=== PATIENT | female | born 1935 | race Caucasian/White ===

== ENCOUNTER 2017-08-02 13:12 | Inpatient (IN) | payer MEDICARE, OTHER ==
[~2017-08-02] VITALS: Ht 167.6 cm; Wt 64.4 kg
[~2017-08-02 13:12] MED LIST: ADVAIR HFA 230M1 AER IH; ADVAIRDISKUS; ALBUTEROL2.5 MG/31 INH; ALIGN4 MG PO; ALTACE5 M1; AVELOX 400 MG400 MG PO; CALCIUM PO; CARAFATE1 GM/10 ML PO; CENTRUM COMPLE1 EACH; CITRACAL + BON1 EACH PO; CYMBALTA30 MG PO; Centrum Silver Ultra PO; DEXILANT60 MG PO; DIAZEPAM 2MG TAB2 MG PO; DOXYCYCLINE 10100 M1 PO; DUONEB 2.5-0.5 M3 ML INH; DYMISTA NASAL S23 GM NS; FLEXERIL PO; FLOMAX PO; FLONASE 0.05%50 MCG NASAL; FLORASTOR250 MG PO; HYDROCHLOROTHIA25 M1 PO; HYDROCODONE-AP1 EAC6 PO; IBUPROFEN 800800 MG PO; KEFLEX500 MG PO; LANSOPRAZOLE30 MG PO; LEVAQUIN 500 M500 M2 PO; MULTIVITAMINS; NEXIUM40 MG; NEXIUM40 MG PO; OMEPRAZOLE; OMEPRAZOLE40 MG PO; PROTONIX40 M1 PO; PROTONIX40 M2 PO; PULMICORT0.25 MG/2 INH; PYRIDIUM100 M1 PO; RESTORIL; RESTORIL30 MG PO; Ramipril 5mg PO; SINGULAIR 10 MG10 M1 PO; SPIRIVA; SYNTHROID50 MCG PO; TRAMADOL 50 MG50 MG PO; TUSSINMAX15 MG/5 ML PO; TUSSIONEX PENN473 ML PO; ULTRAM 50MG TAB50 MG PO; VENTOLIN HFA 1818 GM INH; VITAMIN D31000 UNI2 PO; XIFAXAN550 M1 PO; ZANTAC 150MG T150 M1 PO; ZANTAC 150MG T150 MG PO; ZOFRAN ODT4 MG PO; ZOLOFT100 MG
[2017-08-02 14:21] LABS: ABSOLUTE LYMPHOCYTES 0.9 thou/uL (0.8-5.3); ABSOLUTE MONOCYTES 0.4 thou/uL (0.0-1.2); ABSOLUTE NEUTROPHILS 4.8 thou/uL (1.6-8.1); BASOPHILS 0.6 %; EOSINOPHILS 0.7 %; HEMATOCRIT 38.1 % (37.0-47.0); HEMOGLOBIN 12.5 gm/dL (12.0-15.0); LYMPHOCYTES 14.6 %; MCH 29.8 pg (26.0-34.0); MCHC 32.8 g/dL (28.0-37.0); MCV 90.9 fL (80.0-100.0); MONOCYTES 6.3 %; MPV 8.1 fl. (7.2-11.1); NUCLEATED RBCS 0 /100WBC; PLATELET COUNT* 215 thou/uL (150-400); POLYS 77.8 %; RBC 4.18 mil/uL (4.20-5.00); RDW-CV 14.7 % (10.5-14.5); WBC 6.2 thou/uL (4.0-11.0)
[2017-08-02 14:32] LABS: ALBUMIN 4.1 g/dL (3.4-5.0); CALCIUM 9.9 mg/dL (8.5-10.1); CREATININE 0.9 mg/dL (0.6-1.3); TOTAL BILIRUBIN 0.5 mg/dL (<0.1-1.0)
[2017-08-02 16:00] VITALS: BP 164/62
[2017-08-02 16:12] VITALS: BP 172/76
[2017-08-02 20:00] VITALS: BP 153/54
[2017-08-03 03:56] VITALS: BP 131/89
[2017-08-03 07:56] VITALS: BP 128/67
--- NOTE | 2017-08-03 11:20 | EKG ---
[place] [address] ELECTROCARDIOGRAM REPORT Name: GIGI BAKERLINE Room: [address] ADM IN M.R.#: [id number] Admission: 08/02/17 Attend Phys: Lynette Dunne MD Discharge: Date of : 31 Report #: [id number] THIS REPORT FOR: //name// [facility] Test Date: 2017-08-02 Test Time: 16:44:19 Pat Name: MIKA BAKER Department: Room: [address] Gender: F Manager Bakery: : 1935 Requested By: Lynette Dunne Order Number: [id number] Reading MD: Benito Chaudhary Measurements Intervals [place] Rate: 84 P: 83 NC: 177 QRS: 1 QRSD: 72 T: 63 QT: 347 QTc: 411 Interpretive Statements Sinus rhythm Abnormal R-wave progression, early transition Compared to ECG 09/21/2015 18:12:31 No significant changes Electronically Signed On 08-03-2017 11:20:13 MUSEUM INFORMATICS SPECIALIST by Benito Chaudhary [email or web address] <ELECTRONICALLY SIGNED> By: Benito Chaudhary MD, [facility] 08/03/17 1120 43 43 Benito Chaudhary MD, [facility] /EPI
[2017-08-03 14:11] LABS: URINE BILIRUBIN NEGATIVE (Negative); URINE BLOOD NEGATIVE (Negative); URINE CLARITY CLEAR; URINE COLOR YELLOW; URINE GLUCOSE-RANDOM NEGATIVE (Negative); URINE KETONES NEGATIVE (Negative); URINE LEUKOCYTES-REFLEX NEGATIVE (Negative); URINE PROTEIN NEGATIVE (Negative); URINE SPECIFIC GRAVITY <= 1.005 (1.005-1.030); URINE UROBILINOGEN 0.2 E.U./dl (0.2-1.0)
[2017-08-03 14:13] LABS: URINE NITRITE-REFLEX POSITIVE (Negative)
[2017-08-03 14:21] LABS: CASTS None Seen /LPF (None Seen); CRYSTALS None Seen /LPF (None Seen); MUCUS None Seen strn/LPF (None Seen); SQUAMOUS 0-3 Few /LPF (0-3); URINE RBC 3-10 Few /HPF (0-2); URINE WBC-REFLEX 6-15 Few /HPF (0-5)
[2017-08-03 21:00] VITALS: BP 134/56
[2017-08-04 00:17] VITALS: BP 147/70
[2017-08-04 08:24] VITALS: BP 157/67
[2017-08-04] MEDS ORDERED: AMITRIPTYLINE H50 M4 PO (09:40)
[2017-08-04] MEDS ORDERED: PHENAZOPYRIDIN100 M1 PO (09:40)
[2017-08-04] MEDS ORDERED: ROCEPHIN 11 GM/1001 IV (09:49)
[2017-08-04 10:04] VITALS: BP 157/67
== END 2017-08-04 11:30 | disposition home or self-care (01) | DRG 690 ==
LOC: M.PRE 13:12 → M.ORTHSURG 13:24
PROVIDERS: ADMIT Internal Medicine
PROC: B548ZZA Ultrasonography of Superior Vena Cava, Guidance (ICD-10-PCS; principal; 2017-08-03)
PROC: 02HV33Z Insertion of Infusion Device into Superior Vena Cava, Percutaneous Approach (ICD-10-PCS; principal; 2017-08-03)
DX: N39.0 Urinary tract infection, site not specified (principal); J45.909 Unspecified asthma, uncomplicated; E03.9 Hypothyroidism, unspecified; K21.9 Gastro-esophageal reflux disease without esophagitis; G47.00 Insomnia, unspecified; I10 Essential (primary) hypertension; Z79.82 Long term (current) use of aspirin; Z79.899 Other long term (current) drug therapy; Z90.49 Acquired absence of other specified parts of digestive tract; Z90.710 Acquired absence of both cervix and uterus

== ENCOUNTER → 2017-08-06 | Outpatient (CLI) | payer MEDICARE, OTHER ==
[~2017-08-06] MED LIST changes: +AMITRIPTYLINE H50 M4 PO; +BENTYL 20 MG TA20 M1 PO; +LEVSIN0.125 MG PO; +MAGOX 400400 MG PO; +ONDANSETRON HCL4 M2 PO; +ORPHENADRINE C100 M2 PO; +PHENAZOPYRIDIN100 M1 PO; +PROBIOTIC1 EAC1 PO; +REGLAN 5 MG TAB5 MG PO; +ROCEPHIN 11 GM/1001 IV; +SYMBICORT160 MCG/4. INH; +VITAMIN D1000 UNI1 PO; +ZOFRAN4 MG PO
[2017-08-06 12:30] VITALS: BP 159/52
--- NOTE | 2017-08-06 14:10 | NUR ---
ASSUMED CARE OF PATIENT FROM HOME. PT IS HERE ALONE AND IS DOING WELL. SHE HAS NO CO OF PAIN OR NAUSEA. SHE WAS EDUCATED ON PLAN OF CARE AND MEDICATIONS, WILL CONTINUE TO MONITOR.
== END ==
LOC: M.INFUS 04:58
DX: N39.0 Urinary tract infection, site not specified (principal); R10.9 Unspecified abdominal pain; J20.9 Acute bronchitis, unspecified; M54.30 Sciatica, unspecified side

== ENCOUNTER → 2017-08-07 | Outpatient (CLI) | payer MEDICARE, OTHER | LOC: M.INFUS 09:15 | DX: N39.0 Urinary tract infection, site not specified (principal) ==

== ENCOUNTER → 2017-08-09 | Outpatient (CLI) | payer MEDICARE, OTHER ==
--- NOTE | 2017-08-09 12:40 | NUR ---
PATIENT ARRIVAL AMBULATORY FROM HOME TO OP INFUSION LAB. MADE SELF COMFORTABLE IN RECLINER. CALL LIGHT AND REMOTE GIVEN TO PATIENT. HISTORY AND ORDERS REVIEWED. REASSESSMENT AND VS OBTAINED. RT UPPER ARM SINGLE LUMEN PICC LINE IN PLACE. PICC LINE DRESSING C/D/I WITHOUT EDEMA. PICC FLUSHES WELL AND BRISK BLOOD RETURN OBTAINED. ANTIBIOTIC THERAPY STARTED PER EMAR ONCE AVAILABLE FROM PHARMACY. PATIENT DENIES CONCERNS.
[2017-08-09 12:43] VITALS: BP 153/68
--- NOTE | 2017-08-09 13:25 | NUR ---
ANTIBIOTIC COMPLETED WITHOUT DIFFICULTY. PICC LINE FLUSHED WITH NS 20MLS. PATIENT DEPARTS FOR HOME AT 1330.
== END ==
LOC: M.INFUS 05:59
DX: N39.0 Urinary tract infection, site not specified (principal); R53.1 Weakness; J20.9 Acute bronchitis, unspecified; R10.9 Unspecified abdominal pain; M54.30 Sciatica, unspecified side

== ENCOUNTER → 2017-08-10 | Outpatient (CLI) | payer MEDICARE, OTHER ==
[2017-08-10 13:00] VITALS: BP 134/72
== END ==
LOC: M.INFUS 01:51
DX: N39.0 Urinary tract infection, site not specified (principal); R10.9 Unspecified abdominal pain; R53.1 Weakness; J20.9 Acute bronchitis, unspecified; M54.30 Sciatica, unspecified side

== ENCOUNTER → 2017-08-11 | Outpatient (CLI) | payer MEDICARE, OTHER ==
[2017-08-11 13:15] VITALS: BP 124/65
--- NOTE | 2017-08-11 14:05 | NUR ---
ARRIVED AMBULATORY. MADE SELF COMFORTABLE. PICC INTACT AND PATNET WITH GOOD BLOOD RETURN AND EASY FLUSH. INFUSION COMPLETED AND TOLREATED WELL. DENIES NEEDS AT DISCHARGE. CALL PLACED TO PRIMARY CARE DR. RICHTER. REQUESTIONG ORDER TO PULL PICC AFTER LAST SCHEDULED INFUSION TOMORROW. NO CALL BACK AT THIS TIME.
== END ==
LOC: M.INFUS 04:20
DX: N39.0 Urinary tract infection, site not specified (principal); R39.15 Urgency of urination; R53.1 Weakness; J20.9 Acute bronchitis, unspecified; R10.9 Unspecified abdominal pain; M54.30 Sciatica, unspecified side

== ENCOUNTER → 2017-08-12 | Outpatient (CLI) | payer MEDICARE, OTHER ==
[2017-08-12 13:02] VITALS: BP 152/89
--- NOTE | 2017-08-12 13:38 | NUR ---
ARRIVED AMBULATORY WITH FRIEND. DENIES ADVERSE REACTION TO MULTIPLE INFUSIONS OF SAME. WEEKLY PICC DRESSING CHANGE COMPLETED. INFUSION RUNNING WELL.
--- NOTE | 2017-08-12 13:55 | NUR ---
INFUSION COMPLETED AND TOLERATED WELL.
== END ==
LOC: M.INFUS 05:56
DX: N39.0 Urinary tract infection, site not specified (principal); J20.9 Acute bronchitis, unspecified; M54.30 Sciatica, unspecified side; R10.9 Unspecified abdominal pain

== ENCOUNTER 2018-01-07 21:04 | Emergency (ER) | payer MEDICARE, OTHER ==
[~2018-01-07] VITALS: Ht 167.6 cm; Wt 65.3 kg
[~2018-01-07 21:04] MED LIST changes: -BENTYL 20 MG TA20 M1 PO; -LEVSIN0.125 MG PO; -MAGOX 400400 MG PO; -ONDANSETRON HCL4 M2 PO; -ORPHENADRINE C100 M2 PO; -PROBIOTIC1 EAC1 PO; -REGLAN 5 MG TAB5 MG PO; -SYMBICORT160 MCG/4. INH; -VITAMIN D1000 UNI1 PO; -ZOFRAN4 MG PO
[2018-01-07] MEDS ORDERED: ORPHENADRINE C100 M2 PO (21:26)
[2018-01-07] MEDS ORDERED: LEVSIN0.125 MG PO (21:27)
[2018-01-07] MEDS ORDERED: SYMBICORT160 MCG/4. INH (21:27)
[2018-01-07] MEDS ORDERED: PROBIOTIC1 EAC1 PO (21:27)
[2018-01-07] MEDS ORDERED: MAGOX 400400 MG PO (21:27)
[2018-01-07] MEDS ORDERED: ONDANSETRON HCL4 M2 PO (21:28)
[2018-01-07 21:36] LABS: ABSOLUTE EOSINOPHILS 0.2 thou/uL (0.0-0.7); ABSOLUTE LYMPHOCYTES 1.2 thou/uL (0.8-5.3); ABSOLUTE MONOCYTES 0.4 thou/uL (0.0-1.2); ABSOLUTE NEUTROPHILS 3.3 thou/uL (1.6-8.1); BASOPHILS 0.7 %; EOSINOPHILS 3.7 %; HEMATOCRIT 36.9 % (37.0-47.0); HEMOGLOBIN 12.2 gm/dL (12.0-15.0); LYMPHOCYTES 22.8 %; MCH 29.8 pg (26.0-34.0); MCHC 32.9 g/dL (28.0-37.0); MCV 90.5 fL (80.0-100.0); MONOCYTES 8.2 %; MPV 7.5 fl. (7.2-11.1); NUCLEATED RBCS 0 /100WBC; PLATELET COUNT* 208 thou/uL (150-400); POLYS 64.6 %; RBC 4.08 mil/uL (4.20-5.00); RDW-CV 14.4 % (10.5-14.5); WBC 5.2 thou/uL (4.0-11.0)
[2018-01-07 21:41] LABS: ANION GAP 6 mmol/L (7-16); BUN 15 mg/dL (7-18); CALCIUM 8.8 mg/dL (8.5-10.1); CHLORIDE 95 mmol/L (98-107); CO2 33 mmol/L (21-32); GLUCOSE 112 mg/dL (70-99); SODIUM 134 mmol/L (136-145)
[2018-01-07 21:43] LABS: APTT 30.5 Seconds (25.0-31.3)
[2018-01-07 21:48] LABS: ALBUMIN 3.8 g/dL (3.4-5.0); ALKALINE PHOSPHATASE 68 U/L (46-116); LIPASE 68 U/L (73-393); SGOT 16 U/L (15-37); SGPT 19 U/L (30-65); TOTAL BILIRUBIN 0.3 mg/dL (<0.1-1.0); TOTAL PROTEIN 7.6 g/dL (6.4-8.2); TROPONIN-I LEVEL <0.06 ng/mL (<0.06)
[2018-01-07 22:10] LABS: URINE BILIRUBIN NEGATIVE (Negative); URINE BLOOD NEGATIVE (Negative); URINE CLARITY CLEAR; URINE COLOR YELLOW; URINE GLUCOSE-RANDOM NEGATIVE (Negative); URINE KETONES NEGATIVE (Negative); URINE LEUKOCYTES-REFLEX NEGATIVE (Negative); URINE NITRITE-REFLEX NEGATIVE (Negative); URINE PROTEIN NEGATIVE (Negative); URINE UROBILINOGEN 0.2 E.U./dl (0.2-1.0)
[2018-01-07] MEDS ORDERED: ZOFRAN4 MG PO (23:22)
[2018-01-07] MEDS ORDERED: BENTYL 20 MG TA20 M1 PO (23:22)
[2018-01-07 23:40] VITALS: BP 144/71
--- NOTE | 2018-01-10 11:34 | EKG ---
[place] [address] ELECTROCARDIOGRAM REPORT Name: GIGI BAKERISIAH BARRERA [id number] Admission: 01/07/18 Attend Phys: Discharge: 01/07/18 Date of : 31 Report #: [id number] THIS REPORT FOR: //name// [facility] ED Test Date: 2018-01-07 Test Time: 23:01:58 Pat Name: MIKA BAKER Department: Room: Gender: F Residential Program Coordinator: HUGO Leblanc : 1935 Requested By: Phill Bashir Order Number: [id number] MD: Kevin Pretty Measurements Intervals [place] Rate: 92 P: 83 DC: 188 QRS: -6 QRSD: 76 T: 63 QT: 357 QTc: 442 Interpretive Statements Sinus rhythm Ventricular premature complex Compared to ECG 08/02/2017 16:44:19 Ventricular premature complex(es) now present Electronically Signed On 01-10-2018 11:33:53 CDT by Kevin Pretty [email or web address] <ELECTRONICALLY SIGNED> By: Kevin Pretty MD, [facility] 01/10/18 113 00 00 Kevin Pretty MD, FAC /EPI
== END 2018-01-07 23:40 | disposition home or self-care (01) ==
LOC: M.ERS 21:04
PROVIDERS: Nurse Practitioner Family
DX: K52.9 Noninfective gastroenteritis and colitis, unspecified (principal); M19.90 Unspecified osteoarthritis, unspecified site; J45.909 Unspecified asthma, uncomplicated; E03.9 Hypothyroidism, unspecified; Z90.49 Acquired absence of other specified parts of digestive tract; Z90.710 Acquired absence of both cervix and uterus; Z90.89 Acquired absence of other organs; Z88.6 Allergy status to analgesic agent; Z88.1 Allergy status to other antibiotic agents; Z88.2 Allergy status to sulfonamides

== ENCOUNTER 2018-01-14 20:35 | Inpatient (IN) | payer MEDICARE, OTHER ==
[~2018-01-14] VITALS: Ht 167.6 cm; Wt 67.6 kg
--- NOTE | ~2018-01-14 | PROC ---
[address] [address] PROCEDURE REPORT Name: MIKA BKAERRD Room: [address] IN M.R.#: [id number] Admission: 01/14/18 Attend Phys: Donato Pop MD Discharge: 01/17/18 Date of : 33 Report #: [id number] THIS REPORT FOR: //name// For GI report, please see the Provation report in Perceptive 7 content. By: [id number] Records Staff PILO /YOSEPH
[~2018-01-14 20:35] MED LIST changes: +BENTYL 20 MG TA20 M1 PO; +LEVSIN0.125 MG PO; +MAGOX 400400 MG PO; +ONDANSETRON HCL4 M2 PO; +ORPHENADRINE C100 M2 PO; +PROBIOTIC1 EAC1 PO; +SYMBICORT160 MCG/4. INH; +ZOFRAN4 MG PO
[2018-01-14 21:09] VITALS: BP 199/80
[2018-01-14 21:19] LABS: URINE BILIRUBIN NEGATIVE (Negative); URINE BLOOD NEGATIVE (Negative); URINE CLARITY CLEAR; URINE COLOR YELLOW; URINE GLUCOSE-RANDOM NEGATIVE (Negative); URINE KETONES NEGATIVE (Negative); URINE LEUKOCYTES-REFLEX NEGATIVE (Negative); URINE NITRITE-REFLEX NEGATIVE (Negative); URINE PROTEIN NEGATIVE (Negative); URINE UROBILINOGEN 0.2 E.U./dl (0.2-1.0)
[2018-01-14 21:27] LABS: ABSOLUTE LYMPHOCYTES 0.8 thou/uL (0.8-5.3); ABSOLUTE MONOCYTES 0.3 thou/uL (0.0-1.2); ABSOLUTE NEUTROPHILS 6.5 thou/uL (1.6-8.1); BASOPHILS 0.5 %; HEMATOCRIT 38.7 % (37.0-47.0); HEMOGLOBIN 12.8 gm/dL (12.0-15.0); LYMPHOCYTES 10.8 %; MCH 29.7 pg (26.0-34.0); MCHC 33.1 g/dL (28.0-37.0); MCV 89.7 fL (80.0-100.0); MONOCYTES 4.1 %; MPV 7.6 fl. (7.2-11.1); NUCLEATED RBCS 0 /100WBC; PLATELET COUNT* 218 thou/uL (150-400); POLYS 84.6 %; RBC 4.31 mil/uL (4.20-5.00); RDW-CV 14.4 % (10.5-14.5); WBC 7.7 thou/uL (4.0-11.0)
[2018-01-14 21:50] LABS: CALCIUM 9.3 mg/dL (8.5-10.1); CREATININE 0.9 mg/dL (0.6-1.3); POTASSIUM 4.1 mmol/L (3.5-5.1)
[2018-01-14 21:59] LABS: ALBUMIN 3.9 g/dL (3.4-5.0); TOTAL BILIRUBIN 0.4 mg/dL (<0.1-1.0); TOTAL PROTEIN 7.9 g/dL (6.4-8.2)
[2018-01-15 00:04] VITALS: BP 169/59
[2018-01-15 00:20] VITALS: BP 169/65
[2018-01-15] MEDS ORDERED: VITAMIN D1000 UNI1 PO (00:21)
--- NOTE | 2018-01-15 06:17 | NUR ---
ASSESSMENT COMPLETE. PT ADMITTED WITH HYPONATREMIA AND INTRACTABLE NAUSEA. PT DENIES PAIN. NO VOMITTING SINCE ADMISSION TO FLOOR AT 0020. ROUTINE GI CONSULT ORDERED FOR TODAY. PT IS ON CLEAR LIQUIDS, ADVANCE TOLERATED. PT HAS IV FLUIDS INFUSING. PT DENIES DIARRHEA. PT IS ON ROOM AIR WITH ADEQAUTE SATS. MELATONIN GIVEN FOR SLEEP. SEE ASSESSMENT AND VITALS FOR OTHER DETAILS. CALL LIGHT WITHIN REACH, WILL CONTINUE PLAN OF CARE
[2018-01-15 10:00] VITALS: BP 160/59
[2018-01-15 11:27] LABS: HEMATOCRIT 37.8 % (37.0-47.0); HEMOGLOBIN 12.4 gm/dL (12.0-15.0); MCH 29.8 pg (26.0-34.0); MCHC 32.8 g/dL (28.0-37.0); MCV 90.6 fL (80.0-100.0); MPV 7.8 fl. (7.2-11.1); RBC 4.17 mil/uL (4.20-5.00); RDW-CV 14.7 % (10.5-14.5); WBC 5.5 thou/uL (4.0-11.0)
[2018-01-15 11:45] LABS: ALBUMIN 3.6 g/dL (3.4-5.0); CALCIUM 8.6 mg/dL (8.5-10.1); CREATININE 0.8 mg/dL (0.6-1.3); POTASSIUM 3.3 mmol/L (3.5-5.1); TOTAL BILIRUBIN 0.2 mg/dL (<0.1-1.0); TOTAL PROTEIN 7.1 g/dL (6.4-8.2)
--- NOTE | 2018-01-15 14:40 | NUR ---
PT.LIVES ALONE. STATED SHE WAS PRETTY INDEPENDENT AT HOME. SHE DOES NOT USE ANY DME. 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 SHE SAID HER NEPHEW IS SUPPORTIVE AND DRIVES HER TO ERRANDS/APPTS. NO HX OF HH. IN SHE CAME TO OUTPT.INFUSION FOR IV ANTIBIOTICS AND THAT WORKED OUT PRETTY WELL,PT.STATED.
--- NOTE | 2018-01-15 15:19 | NUR ---
PATIENT HAVING ABD CRAMPS THIS AFTERNOON, DR. FLORES NOTIFIED AND OK FOR IMODIUM. CDIFF SAMPLE CANCELLED HX OF IBS. AWAITING GI TO ROUND. IVF REMAINS INFUSING. PATIENT ON REG DIET. POTASSIUM 3.3, PATIENT GIVEN 1ST DOSE OF PO POTASSIUM AND REFUSED TO TAKE THE 2ND DOSE UNTIL LATER.
[2018-01-15 16:00] VITALS: BP 165/58
--- NOTE | 2018-01-15 18:18 | NUR ---
TOOK OVER CARE OF PATIENT AT 1500, AGREE WITH PREVIOUS NURSES ASSESSMENT. NO COMPLAINTS OF ANY KIND. VITAL SIGNS STABLE. CALL LIGHT IS IN REACH, WILL CONTINUE TO MONITOR.
[2018-01-15 23:59] VITALS: BP 168/68
[2018-01-16 04:19] LABS: HEMATOCRIT 34.8 % (37.0-47.0); HEMOGLOBIN 11.4 gm/dL (12.0-15.0); MCHC 32.8 g/dL (28.0-37.0); MCV 91.6 fL (80.0-100.0); MPV 8.3 fl. (7.2-11.1); RBC 3.8 mil/uL (4.20-5.00); RDW-CV 14.6 % (10.5-14.5); WBC 5.4 thou/uL (4.0-11.0)
[2018-01-16 05:20] LABS: CALCIUM 8.3 mg/dL (8.5-10.1); CREATININE 0.7 mg/dL (0.6-1.3); MAGNESIUM 1.9 mg/dL (1.8-2.4); POTASSIUM 4.3 mmol/L (3.5-5.1)
--- NOTE | 2018-01-16 06:31 | NUR ---
ASSESSMENT COMPLETE. PT SLEPT THROUGH THE NIGHT. NAUSEA MEDICATION GIVEN ONCE. PT HAS BEEN NPO SINCE MIDNIGHT FOR EGD, CONSENTS SIGNED. PT HAS IV FLUIDS INFUSING. K+ REPLACED, NOW 4.3. PT IS UP AD SOPHIA TO BATHROOM. SEE ASSESSMENT AND VITALS FOR OTHER DETAILS. CALL LIGHT WITHIN REACH, WILL CONTINUE PLAN OF CARE
[2018-01-16 08:15] VITALS: BP 173/77
[2018-01-16 09:45] VITALS: BP 165/48
--- NOTE | 2018-01-16 11:55 | EKG ---
[place] [address] ELECTROCARDIOGRAM REPORT Name: SAMUELMIKA Room: [address] ADM IN M.R.#: [id number] Admission: 01/14/18 Attend Phys: Donato Pop MD Discharge: Date of : 31 Report #: [id number] THIS REPORT FOR: //name// [facility] Test Date: 2018-01-16 Test Time: 07:58:39 Pat Name: MIKA BAKER Department: Room: [address] Gender: F Remelt Operator: : 1935 Requested By: Mario Rodrigues Order Number: [id number] Reading MD: Enrrique Bermudez Measurements Intervals [place] Rate: 68 P: 68 WV: 175 QRS: 0 QRSD: 71 T: 59 QT: 383 QTc: 408 Interpretive Statements Sinus rhythm Anteroseptal infarct, old Compared to ECG 01/07/2018 23:01:58 Myocardial infarct finding now present Ventricular premature complex(es) no longer present Electronically Signed On 01-16-2018 11:54:51 CDT by Enrrique Bermudez [email or web address] <ELECTRONICALLY SIGNED> By: Enrrique Bermudez MD, [facility] 01/16/18 1154 0758 0758 Enrrique Bermudez MD, [facility] /EPI
[2018-01-16 16:27] VITALS: BP 126/45
--- NOTE | 2018-01-16 18:33 | NUR ---
PATIENT RESTING IN BED. PATIENT IS UP AD SOPHIA IN ROOM. PATIENT HAS ABDOMINAL PAIN AND CRAMPING WITH EATING, BENTYL GIVEN WITH ADEQUATE RELIEF. PATIENT HAD EGD THIS AM WITHOUT INCIDENT. PATIENT SCHEDULED FOR GASTRIC EMPTYING TEST IN AM, NPO AFTER MIDNIGHT. PATIENT DENIES ANY NEEDS AT THIS TIME. CALL LIGHT WITHIN REACH. WILL CONTINUE TO MONITOR.
[2018-01-17 00:12] VITALS: BP 156/62
[2018-01-17 04:19] LABS: CALCIUM 8.9 mg/dL (8.5-10.1); CREATININE 0.9 mg/dL (0.6-1.3); POTASSIUM 4.3 mmol/L (3.5-5.1)
--- NOTE | 2018-01-17 06:43 | NUR ---
ASSESSMENT COMPLETE. PT SLEPT GOOD THROUGH THE NIGHT. PT NPO FOR GASTRIC EMPTYING TEST TODAY WITH DR DOMÍNGUEZ. PT DENIES N/V AND PAIN. PT REPORTS NO BM DURING THE NIGHT. IV FLUIDS INFUSING. PT IS UP AD SOPHIA WITH STEADY GAIT. SEE ASSESSMENT AND VITALS FOR OTHER DETAILS. CALL LIGHT WITHIN REACH, WILL CONTINUE PLAN OF CARE
[2018-01-17 08:10] VITALS: BP 150/65
[2018-01-17 16:49] VITALS: BP 135/57
[2018-01-17 17:11] VITALS: BP 135/57
--- NOTE | 2018-01-17 17:28 | NUR ---
ASSUMED CARE OF PATIENT AFTER REPORT THIS MORNING. PATIENT AWAKE, ALERT, AND ORIENTED APPROPRIATELY. PHYSICAL ASSESSMENT COMPLETED AND CHARTED. NO COMPLAINTS OF PAIN OR DIARRHEA THIS SHIFT. GIVEN SCHEDULED MEDICATIONS, SEE EMAR FOR DOCUMENTATION. VITAL SIGNS STABLE. OXYGEN SATURATION WITHIN NORMAL LIMITS ON ROOM AIR. PATIENT IS UP AD SOPHIA. IS HOPEFUL TO BE DISCHARGED THIS EVENING. WAITING TO HEAR FROM DR. DOMÍNGUEZ REGARDING GI SIGN OFF. IF GI SIGNS OFF PATIENT CAN DISCHARGE HOME PER ORDERS FROM DR. FLORES. DENIES OTHER NEEDS AT THIS TIME. CALL LIGHT WITHIN REACH. NURSING WILL CONTINUE TO MONITOR.
[2018-01-17] MEDS ORDERED: REGLAN 5 MG TAB5 MG PO (17:58)
--- NOTE | 2018-01-17 18:26 | NUR ---
RECEIVED ORDERS FROM DR. SANG CHICAS TO DISCHARGE PATIENT HOME. GAVE VERBAL ORDER TO CALL IN PRESCRIPTION FOR METOCLOPRAMIDE 5 MG PO AC FOR 30 DAYS. CALLING PAT[place] PHARMACY [facility] [place] [address] AT THIS TIME. IV DISCONTINUED. DISCHARGE PAPERWORK COMPLETED AND CHECKED BY SECOND NURSE. WILL DISCUSS WITH PATIENT. WILL CONTINUE TO MONITOR UNTIL DISCHARGE.
--- NOTE | 2018-01-17 18:43 | NUR ---
DISCHARGE PAPERWORK AND PRESCRIPTION DISCUSSED WITH PATIENT. PATIENT DISCHARGED AT 1840. ESCORTED TO FRONT DOOR BY THIS NURSE VIA WHEELCHAIR.
--- NOTE | 2018-01-24 08:10 | PATH ---
[address] [address] PATHOLOGY RPT PROCEDURE Name: SAMUELMIKA BARRERA Room: [address] IN M.R.#: [id number] Admission: 01/14/18 Date of : 31 Discharge: 01/17/18 Report #: [id number] Path Case #: [id number] [facility] Accession Number: [id number] . 01 Material submitted: . PART A: STOMACH BIOPSY PART B: DUODENAL BIOPSY . 01 Clinical history: . A: R/O H. pylori and gastritis B: Persistent diarrhea . 02 Diagnosis: A. 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 . B. Duodenal biopsy: - Normal duodenal mucosa. ([place]:; 01/18/18) . Special Stain: H. pylori (A) QRQ/01/18/2018 . 02 Electronically signed: . Arun Ritchie MD, Pathologist NPI- [id number] . 01 Gross description: . A. The specimen is received in formalin, labeled "Mika Acosta, stomach biopsy". Received are four segments of pale santacruz soft tissue ranging in size from 0.5 to 0.6 cm in maximum dimensions. The specimen is submitted entirely in cassette A1. . B. The specimen is received in formalin, labeled "Mika Acosta, duodenal biopsy". Received are three segments of pale santacruz soft tissue ranging in size from 0.3 to 0.4 cm in maximum dimensions. The specimen is submitted entirely in cassette B1. (CAA; 01/17/2018) QAC/QAC . 02 Pathologist provided ICD-10: K29.50 . 02 CPT . 484349, 780529, N99417 Performed at: 01 [place] [address] PATHOLOGY RPT PROCEDURE Name: MIKA ACOSTA Room: [address] IN [facility]#: [id number] Admission: 01/14/18 Date of : 31 Discharge: 01/17/18 Report #: [id number] Path Case #: [id number] [address] [facility] [address], [place], [place] [id number] MD Teja Gunn MD Phone: [phone] Performed at: [address], [place], [place] [id number] MD Arun Ritchie MD Phone: [phone]
== END 2018-01-17 18:40 | disposition home or self-care (01) | DRG 392 ==
LOC: M.ERS 20:35 → M.3W 23:06 → M.TBA-ER 23:06 → M.3W 01-15 00:04
PROVIDERS: Emergency Medicine; ADMIT Internal Medicine
PROC: 0DB98ZX Excision of Duodenum, Via Natural or Artificial Opening Endoscopic, Diagnostic (ICD-10-PCS; principal; 2018-01-14)
DX: K29.70 Gastritis, unspecified, without bleeding (principal); E87.1 Hypo-osmolality and hyponatremia; K58.9 Irritable bowel syndrome, unspecified; E86.9 Volume depletion, unspecified; K21.9 Gastro-esophageal reflux disease without esophagitis; I10 Essential (primary) hypertension; Z66 Do not resuscitate; K44.9 Diaphragmatic hernia without obstruction or gangrene; E03.9 Hypothyroidism, unspecified; Z90.710 Acquired absence of both cervix and uterus; Z90.49 Acquired absence of other specified parts of digestive tract; Z79.899 Other long term (current) drug therapy; Z88.6 Allergy status to analgesic agent; Z88.2 Allergy status to sulfonamides; Z88.1 Allergy status to other antibiotic agents; Z88.8 Allergy status to other drugs, medicaments and biological substances

== ENCOUNTER → 2018-02-23 | Outpatient (CLI) | payer MEDICARE, OTHER ==
[~2018-02-23] MED LIST changes: +REGLAN 5 MG TAB5 MG PO; +VITAMIN D1000 UNI1 PO
== END ==
LOC: M.RAD 10:13
DX: M41.84 Other forms of scoliosis, thoracic region (principal); M85.80 Other specified disorders of bone density and structure, unspecified site; I70.0 Atherosclerosis of aorta; G89.29 Other chronic pain; I10 Essential (primary) hypertension; E03.9 Hypothyroidism, unspecified; J44.9 Chronic obstructive pulmonary disease, unspecified; K21.9 Gastro-esophageal reflux disease without esophagitis; Z90.710 Acquired absence of both cervix and uterus; Z90.49 Acquired absence of other specified parts of digestive tract; Z88.6 Allergy status to analgesic agent

== ENCOUNTER → 2018-02-28 | Outpatient (CLI) | payer MEDICARE, OTHER | LOC: M.RAD 08:49 | DX: Z12.31 Encounter for screening mammogram for malignant neoplasm of breast (principal); M81.0 Age-related osteoporosis without current pathological fracture; M85.89 Other specified disorders of bone density and structure, multiple sites; G89.29 Other chronic pain; M54.6 Pain in thoracic spine ==

== ENCOUNTER → 2018-07-11 | Outpatient (CLI) | payer MEDICARE, OTHER | LOC: M.ULTRA 07-08 14:00 | DX: M79.89 Other specified soft tissue disorders (principal); M79.662 Pain in left lower leg ==

== ENCOUNTER → 2018-07-14 | Outpatient (CLI) | payer MEDICARE, OTHER | LOC: M.RAD 09:16 | DX: M79.605 Pain in left leg (principal); M25.562 Pain in left knee ==

== ENCOUNTER 2018-07-23 10:32 | Emergency (ER) | payer MEDICARE, OTHER ==
[~2018-07-23] VITALS: Ht 170.2 cm; Wt 66.2 kg
[~2018-07-23 10:32] MED LIST changes: -SYNTHROID50 MCG PO; +SYNTHROID75 MCG PO
[2018-07-23] MEDS ORDERED: FLEXERIL PO (10:47)
[2018-07-23] MEDS ORDERED: FOSAMAX 70 MG T70 MG PO (10:47)
[2018-07-23] MEDS ORDERED: ZOFRAN ODT4 MG PO (11:11)
[2018-07-23] MEDS ORDERED: NORCO 5-325 TA1 EACH PO (11:11)
[2018-07-23 11:25] VITALS: BP 162/59
[2018-07-23 11:28] LABS: URINE BILIRUBIN NEGATIVE (Negative); URINE BLOOD NEGATIVE (Negative); URINE CLARITY CLEAR; URINE COLOR YELLOW; URINE GLUCOSE-RANDOM NEGATIVE (Negative); URINE KETONES NEGATIVE (Negative); URINE LEUKOCYTES-REFLEX NEGATIVE (Negative); URINE NITRITE-REFLEX NEGATIVE (Negative); URINE PROTEIN NEGATIVE (Negative); URINE SPECIFIC GRAVITY 1.015 (1.005-1.030); URINE UROBILINOGEN 0.2 E.U./dl (0.2-1.0)
== END 2018-07-23 11:26 | disposition home or self-care (01) ==
LOC: M.ERS 10:32
PROVIDERS: Physician Assistant
DX: M25.562 Pain in left knee (principal); J45.909 Unspecified asthma, uncomplicated; E03.9 Hypothyroidism, unspecified; K21.9 Gastro-esophageal reflux disease without esophagitis; K58.9 Irritable bowel syndrome, unspecified; Z90.49 Acquired absence of other specified parts of digestive tract; Z90.710 Acquired absence of both cervix and uterus; Z88.6 Allergy status to analgesic agent; Z88.1 Allergy status to other antibiotic agents; Z88.2 Allergy status to sulfonamides; Z88.8 Allergy status to other drugs, medicaments and biological substances

== ENCOUNTER → 2018-10-19 | Outpatient (CLI) | payer MEDICARE, OTHER ==
[~2018-10-19] MED LIST changes: +FOSAMAX 70 MG T70 MG PO; +NORCO 5-325 TA1 EACH PO
== END ==
LOC: M.ULTRA 10:55
DX: R30.9 Painful micturition, unspecified (principal); R10.2 Pelvic and perineal pain; R31.9 Hematuria, unspecified; Z88.1 Allergy status to other antibiotic agents; Z88.5 Allergy status to narcotic agent; Z88.8 Allergy status to other drugs, medicaments and biological substances

== ENCOUNTER → 2019-04-19 | Outpatient (CLI) | payer MEDICARE, OTHER | LOC: M.ULTRA 04-13 10:30 → M.RAD 09:52 → M.ULTRA 11:00 | DX: Z12.31 Encounter for screening mammogram for malignant neoplasm of breast (principal); N28.1 Cyst of kidney, acquired ==

== ENCOUNTER → 2019-05-23 | Outpatient (CLI) | payer MEDICARE, OTHER ==
[2019-05-23 09:58] LABS: CALCIUM 9.7 mg/dL (8.5-10.1); POTASSIUM 4.5 mmol/L (3.5-5.1)
== END ==
LOC: M.LAB 05-09 10:00 → M.CT 05-09 10:00 → M.LAB 09:30 → M.CT 11:00
PROVIDERS: Nurse Practitioner
DX: Z01.89 Encounter for other specified special examinations (principal); N28.1 Cyst of kidney, acquired; K76.0 Fatty (change of) liver, not elsewhere classified; I70.0 Atherosclerosis of aorta; Z79.899 Other long term (current) drug therapy

== ENCOUNTER → 2019-09-11 | Outpatient (CLI) | payer MEDICARE, OTHER | LOC: M.ULTRA 08-16 10:30 | DX: N28.1 Cyst of kidney, acquired (principal) ==

== ENCOUNTER 2020-03-06 22:36 | Inpatient (IN) | payer MEDICARE, OTHER ==
[~2020-03-06] VITALS: Ht 170.2 cm; Wt 69.3 kg
--- NOTE | ~2020-03-06 | CON ---
[address] [address] CONSULTATION Name: SAMUELMIKA Room: [address] IN M.R.#: [id number] Admission: 03/07/20 Attend Phys: Lynette Dunne MD Discharge: Date of : 33 Report #: [id number] THIS REPORT FOR: //name// cc: Lelia Delgadillo MD, Lin W. MD ~ THIS REPORT FOR: //name// CC: Lynette Delgadillo MD DICTATED BY: Margie Dale [facility] DATE OF SERVICE: 03/07/2020 PCP: Lelia Delgadillo MD Please note at the time of this dictation, the patient was seen and physically examined by myself. REASON FOR CONSULTATION: Abdominal pain. HISTORY OF PRESENT ILLNESS: This is an 84-year-old female who presented to the emergency room with having worsening of her right lower quadrant pain that she states started yesterday and progressively gotten worse. She did have a bowel movement prior to coming, but she states her bowel movements can be variable where she can have a really good bowel movement and then states that her bowels move, but not as significant as previous days. She has taken Linzess in the past periodically, but nothing on a regular basis. The patient did have a colonoscopy back in 2012 that was essentially normal with external hemorrhoids and some diverticulosis. She also had an EGD done at that time that was essentially normal as well. The patient denies any nausea or vomiting. She is mainly talking about the pain and not had a bowel movement since she has been here. She states it felt like she was similar to when she had pancreatitis before. It was noted back in 2007. The patient was seen here at [facility] for pancreatitis of unknown etiology. She had previously had a laparoscopic cholecystectomy years prior to that that were related to stones, but it was unclear as to why she had it. Supposedly, she was to have an EUS with Dr. Brock to rule out sphincter of Oddi, but unclear if she ever had that done. ALLERGIES: STEROIDS, SULFA, ASPIRIN, CIPRO, GABAPENTIN, FLAGYL. MEDICATIONS FROM HOME: Flexeril, Fosamax, Synthroid, Reglan, vitamin D, Zofran, probiotic, magnesium oxide, Symbicort, Protonix, Singulair, ramipril, calcium, Centrum, albuterol sulfate inhaler, hydrochlorothiazide, [place] [address] CONSULTATION Name: MIKA BAKER Yuni Room: [address]#: [id number] Admission: 03/07/20 Attend Phys: Lynette Dunne MD Discharge: Date of : 33 Report #: [id number] PAST MEDICAL HISTORY: Degenerative disk disease, history of pancreatitis, asthma, hypothyroidism, GERD, hepatitis back in 1970, some irritable bowel towards constipation. PAST SURGICAL HISTORY: Cholecystectomy, hysterectomy and tonsillectomy. FAMILY HISTORY: Noncontributory. SOCIAL HISTORY: Denies any alcohol, tobacco or illegal drug use. REVIEW OF SYSTEMS: Twelve-point review of systems is essentially negative except what is mentioned in the HPI. PHYSICAL EXAMINATION: VITAL SIGNS: Temperature 36.6, pulse 83, respirations 19, blood pressure 134/63. HEART: Regular rate and rhythm. LUNGS: Clear. ABDOMEN: Soft, positive bowel sounds in all 4 quadrants with no masses or tenderness noted. LABORATORY DATA: Hemoglobin 13.2, white count 10, platelets 199. PT 10.4, INR 1. GFR 68. LFTs are completely normal. Lipase is 3079. CT of the abdomen and pelvis shows absent gallbladder. Pancreas is normal with no stranding, diverticulosis, small hiatal hernia and large stool noted throughout colon. IMPRESSION: 1. Abdominal pain. 2. Constipation. 3. Elevated lipase, question unknown etiology. PLAN: 1. Continue clear liquids. 2. MiraLax daily. 3. We will recheck lipase and do a lipid panel on her tomorrow. 4. Further recommendations to be made once Dr. Rodrigues sees the patient later today. Thank you for allowing us to participate in this patient's care. Please do not hesitate to call with any questions in regard to this consult. By: 1159 1257Farid Simi Rodrigues MD /devora
[2020-03-06 22:42] VITALS: BP 174/74
[2020-03-06 23:24] LABS: ABSOLUTE EOSINOPHILS 0.1 thou/uL (0.0-0.7); ABSOLUTE LYMPHOCYTES 1.2 thou/uL (0.8-5.3); ABSOLUTE MONOCYTES 0.6 thou/uL (0.0-1.2); ABSOLUTE NEUTROPHILS 8.1 thou/uL (1.6-8.1); BASOPHILS 0.3 %; EOSINOPHILS 0.6 %; HEMATOCRIT 38.7 % (37.0-47.0); HEMOGLOBIN 13.2 gm/dL (12.0-15.0); LYMPHOCYTES 11.5 %; MCH 31.1 pg (26.0-34.0); MCHC 34.1 g/dL (28.0-37.0); MCV 91.2 fL (80.0-100.0); MONOCYTES 6.3 %; MPV 8.5 fl. (7.2-11.1); NUCLEATED RBCS 0 /100WBC; PLATELET COUNT* 199 thou/uL (150-400); POLYS 81.3 %; RBC 4.25 mil/uL (4.20-5.00); RDW-CV 14.9 % (10.5-14.5)
[2020-03-06 23:26] LABS: URINE BILIRUBIN NEGATIVE (Negative); URINE BLOOD NEGATIVE (Negative); URINE CLARITY CLEAR; URINE COLOR YELLOW; URINE GLUCOSE-RANDOM NEGATIVE (Negative); URINE KETONES TRACE (Negative); URINE NITRITE-REFLEX NEGATIVE (Negative); URINE PROTEIN NEGATIVE (Negative); URINE UROBILINOGEN 0.2 E.U./dl (0.2-1.0)
[2020-03-06 23:30] LABS: CALCIUM 8.8 mg/dL (8.5-10.1); POTASSIUM 3.7 mmol/L (3.5-5.1)
[2020-03-06 23:32] LABS: URINE LEUKOCYTES-REFLEX 2+ (Negative)
[2020-03-06 23:33] LABS: PROTIME 10.4 Seconds (9.20-11.50)
[2020-03-06 23:43] LABS: BACTERIA-REFLEX >30 Many /HPF (None Seen); CRYSTALS None Seen /LPF (None Seen); FINE GRANULAR CASTS 0-3 Few /LPF (None Seen); HYALINE CASTS 0-3 Few /LPF (None Seen); MUCUS 4-6 Moderate strn/LPF (None Seen); SQUAMOUS 0-3 Few /LPF (0-3); URINE RBC 3-10 Few /HPF (0-2); URINE WBC-REFLEX >25 Many /HPF (0-5); WBC CLUMPS Few (None Seen)
[2020-03-06 23:44] LABS: ALBUMIN 3.9 g/dL (3.4-5.0); MAGNESIUM 1.7 mg/dL (1.8-2.4); TOTAL BILIRUBIN 0.4 mg/dL (<0.1-1.0); TOTAL PROTEIN 7.6 g/dL (6.4-8.2)
[2020-03-07 05:33] VITALS: BP 169/64
[2020-03-07 08:57] VITALS: BP 139/63
[2020-03-07 09:11] LABS: CALCIUM 8.1 mg/dL (8.5-10.1); CREATININE 0.8 mg/dL (0.6-1.3); MAGNESIUM 1.8 mg/dL (1.8-2.4); POTASSIUM 3.9 mmol/L (3.5-5.1)
--- NOTE | 2020-03-07 10:11 | EKG ---
[place] [address] ELECTROCARDIOGRAM REPORT Name: MIKA BAKER Room: [address] ADM IN M.R.#: [id number] Admission: 03/07/20 Attend Phys: Lynette Dunne, Discharge: Date of : 31 Date of Service: 03/06/20 2317 Report #: [id number] THIS REPORT FOR: //name// [facility] ED Test Date: 2020-03-06 Test Time: 23:17:43 Pat Name: MIKA BAKER Department: Room: [facility] Gender: F K 9 Police Officer: EDMOND : 1935 Requested By: Leia Jauregui Order Number: [id number] MD: Benito Chaudhary Measurements Intervals [place] Rate: 111 P: 82 LA: 167 QRS: -11 QRSD: 80 T: 77 QT: 311 QTc: 423 Interpretive Statements Sinus tachycardia Multiple ventricular premature complexes Compared to ECG 01/16/2018 07:58:39 Ventricular premature complex(es) now present Sinus rhythm no longer present Electronically Signed On 03-07-2020 10:11:10 CDT by Benito Chaudhary [email or web address] <ELECTRONICALLY SIGNED> By: Benito Chaudhary MD, [facility] 03/07/20 1011 2317 2317 Benito Chaudhary MD, [facility] /EPI
[2020-03-07 16:50] VITALS: BP 146/67
[2020-03-07 20:25] VITALS: BP 159/67
[2020-03-08 04:18] LABS: CHOLESTEROL 118 mg/dL (<200); HDL CHOLESTEROL 48 mg/dL (>40); LDL CHOLESTEROL 54 mg/dL (<100); LIPASE 208 U/L (73-393); TC:HDL 2.5 Ratio (Not establshd); TRIGLYCERIDE 82 mg/dL (<150); VLDL 16 mg/dL (<40)
[2020-03-08 04:23] LABS: SERUM ASSESSMENT Clear
[2020-03-08 09:00] VITALS: BP 130/54
[2020-03-08 16:12] VITALS: BP 127/56
[2020-03-08 20:00] VITALS: BP 148/62
[2020-03-09] MEDS ORDERED: SENNA8.6 MG PO (07:27)
[2020-03-09] MEDS ORDERED: MIRALAX17 GM PO (07:27)
[2020-03-09 08:34] VITALS: BP 133/57
[2020-03-09 11:25] VITALS: BP 133/57
== END 2020-03-09 12:24 | disposition home or self-care (01) | DRG 439 ==
LOC: M.ERS 22:36 → M.ORTHSURG 03-07 04:17 → M.TBA-ER 03-07 04:17 → M.ORTHSURG 03-07 05:44
PROVIDERS: Emergency Medicine; Internal Medicine; Nurse Practitioner Adult Health; ADMIT Internal Medicine; ATTEND Internal Medicine
DX: K85.90 Acute pancreatitis without necrosis or infection, unspecified (principal); N30.01 Acute cystitis with hematuria; M19.90 Unspecified osteoarthritis, unspecified site; E03.9 Hypothyroidism, unspecified; K59.09 Other constipation; K31.84 Gastroparesis; K75.9 Inflammatory liver disease, unspecified; G89.29 Other chronic pain; E83.42 Hypomagnesemia; N18.2 Chronic kidney disease, stage 2 (mild); I12.9 Hypertensive chronic kidney disease with stage 1 through stage 4 chronic kidney disease, or unspecified chronic kidney disease; M81.0 Age-related osteoporosis without current pathological fracture; F11.90 Opioid use, unspecified, uncomplicated; F41.1 Generalized anxiety disorder; Z66 Do not resuscitate; K21.9 Gastro-esophageal reflux disease without esophagitis; K58.9 Irritable bowel syndrome, unspecified; K44.9 Diaphragmatic hernia without obstruction or gangrene; J44.9 Chronic obstructive pulmonary disease, unspecified; K57.50 Diverticulosis of both small and large intestine without perforation or abscess without bleeding; Z79.899 Other long term (current) drug therapy; Z79.51 Long term (current) use of inhaled steroids; Z88.8 Allergy status to other drugs, medicaments and biological substances; Z90.49 Acquired absence of other specified parts of digestive tract; Z90.710 Acquired absence of both cervix and uterus; Z87.891 Personal history of nicotine dependence; Z88.1 Allergy status to other antibiotic agents; Z88.2 Allergy status to sulfonamides; Z88.6 Allergy status to analgesic agent; Z03.818 Encounter for observation for suspected exposure to other biological agents ruled out

== ENCOUNTER → 2020-03-14 | Outpatient (CLI) | payer MEDICARE, OTHER ==
[~2020-03-14] MED LIST changes: +MIRALAX17 GM PO; +SENNA8.6 MG PO
== END ==
LOC: M.RAD 11:57
PROVIDERS: ATTEND Internal Medicine
DX: R91.8 Other nonspecific abnormal finding of lung field (principal)

== ENCOUNTER 2020-08-14 10:42 | Emergency (ER) | payer MEDICARE, OTHER ==
[~2020-08-14] VITALS: Ht 170.2 cm; Wt 67.1 kg
[2020-08-14] MEDS ORDERED: LEVO-T50 MCG PO (10:56)
[2020-08-14] MEDS ORDERED: REGLAN 5 MG TAB5 MG PO (10:57)
[2020-08-14] MEDS ORDERED: PROTONIX40 M2 PO (10:58)
[2020-08-14] MEDS ORDERED: XANAX 0.5 MG0.5 MG PO (10:59)
[2020-08-14] MEDS ORDERED: ELMIRON 100 MG100 M1 PO (11:00)
[2020-08-14 11:28] LABS: ABSOLUTE MONOCYTES 0.5 thou/uL (0.0-1.2); BASOPHILS 0.8 %; EOSINOPHILS 0.7 %; HEMATOCRIT 37.1 % (37.0-47.0); HEMOGLOBIN 12.3 gm/dL (12.0-15.0); MCH 30.5 pg (26.0-34.0); MCV 92.4 fL (80.0-100.0); MPV 7.4 fl. (7.2-11.1); NUCLEATED RBCS 0 /100WBC; PLATELET COUNT* 228 thou/uL (150-400); POLYS 71.5 %; RBC 4.01 mil/uL (4.20-5.00); RDW-CV 14.4 % (10.5-14.5); WBC 5.5 thou/uL (4.0-11.0)
[2020-08-14 11:35] LABS: PROTIME 10.5 Seconds (9.20-11.50)
[2020-08-14 11:39] LABS: CALCIUM 9.3 mg/dL (8.5-10.1); CREATININE 0.9 mg/dL (0.6-1.3); POTASSIUM 4.5 mmol/L (3.5-5.1)
[2020-08-14 11:49] LABS: TOTAL BILIRUBIN 0.2 mg/dL (<0.1-1.0); TOTAL PROTEIN 7.5 g/dL (6.4-8.2)
[2020-08-14] MEDS ORDERED: VENTOLIN HFA 1818 GM INH (14:35)
[2020-08-14] MEDS ORDERED: DOXYCYCLINE 10100 M2 PO (14:35)
[2020-08-14 14:59] VITALS: BP 163/68
--- NOTE | 2020-08-14 15:54 | EKG ---
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: : 1935 Requested By: Jose Hercules Order Number: [id number] MD: Benito Chaudhary Measurements Intervals [place] Rate: 85 P: 84 [place]: 156 QRS: -6 QRSD: 78 T: 60 QT: 342 QTc: 407 Interpretive Statements Sinus rhythm poor r wave progression Ventricular premature complex Baseline wander in lead(s) V4,V5,V6 Compared to ECG 03/06/2020 23:17:43 Sinus tachycardia no longer present Electronically Signed On 08-14-2020 15:54:18 ECHO TECHNOLOGIST by Benito Chaudhary [email or web address] <ELECTRONICALLY SIGNED> By: Benito Chaudhary MD, [facility] 08/14/20 1554 1110 1110 Benito Chaudhary MD, [facility] /EPI
== END 2020-08-14 15:01 | disposition home or self-care (01) ==
LOC: M.ERS 10:42
PROVIDERS: Emergency Medicine Emergency Medical Services
DX: J18.9 Pneumonia, unspecified organism (principal); Z20.828 Contact with and (suspected) exposure to other viral communicable diseases; K58.9 Irritable bowel syndrome, unspecified; J45.909 Unspecified asthma, uncomplicated; E03.9 Hypothyroidism, unspecified; K21.9 Gastro-esophageal reflux disease without esophagitis; Z88.6 Allergy status to analgesic agent; Z88.2 Allergy status to sulfonamides; Z88.1 Allergy status to other antibiotic agents; Z88.8 Allergy status to other drugs, medicaments and biological substances; Z90.49 Acquired absence of other specified parts of digestive tract; Z90.710 Acquired absence of both cervix and uterus; Z90.89 Acquired absence of other organs

== ENCOUNTER → 2020-08-29 | Outpatient (CLI) | payer MEDICARE, OTHER ==
[~2020-08-29] MED LIST changes: +DOXYCYCLINE 10100 M2 PO; +ELMIRON 100 MG100 M1 PO; +LEVO-T50 MCG PO; +XANAX 0.5 MG0.5 MG PO
== END ==
LOC: M.RAD 09:28
PROVIDERS: ATTEND Internal Medicine
DX: J18.9 Pneumonia, unspecified organism (principal)

== ENCOUNTER → 2020-09-17 | Outpatient (CLI) | payer MEDICARE, OTHER | LOC: M.CT 10:50 | PROVIDERS: ATTEND Internal Medicine | DX: J43.8 Other emphysema (principal); J18.9 Pneumonia, unspecified organism; R91.8 Other nonspecific abnormal finding of lung field ==

== ENCOUNTER → 2020-10-16 | Outpatient (CLI) | payer MEDICARE, OTHER | LOC: M.CT 10:15 | PROVIDERS: ATTEND Internal Medicine | DX: K57.30 Diverticulosis of large intestine without perforation or abscess without bleeding (principal); J43.2 Centrilobular emphysema; R91.8 Other nonspecific abnormal finding of lung field; R50.9 Fever, unspecified; I70.0 Atherosclerosis of aorta; M41.86 Other forms of scoliosis, lumbar region ==

== ENCOUNTER → 2020-11-19 | Outpatient (CLI) | payer MEDICARE, OTHER ==
--- NOTE | 2020-11-28 11:30 | PF ---
[address] [address] PULMONARY FUNCTION REPORT Name: MIKA BAKER Room: [facility]#: [id number] Admission: 11/19/20 Attend Phys: Bacilio Patel MD Discharge: Date of : 31 Report #: [id number] THIS REPORT FOR: cc: Lelia Delgadillo MD, Lin W. MD Pervez, Adeel MD ~ DOC #: [id number] Bacilio Patel MD DATE OF VISIT: 11/19/2020 PULMONARY FUNCTION TEST: SPIROMETRY: The FEV1/FVC ratio is decreased to 58% with an FVC normal at 81%. The FEV1 is decreased to 64%. The FEF 25-75 is decreased to 21%. After the administration of a bronchodilator, there is no significant increase in any of these values. The patient's post-bronchodilator FEV1 is 1.31 liters. The patient was claustrophobic and could not perform lung volumes. The DLCO was 108% as it is adjusted for hemoglobin. The flow volume loop is concave upwards. IMPRESSION: 1. Moderate obstruction without evidence of reversibility. 2. The patient is unable to perform lung volumes secondary to claustrophobia. 3. The DLCO as adjusted for hemoglobin is normal at 108%. Bacilio Patel MD AP/SAB <ELECTRONICALLY SIGNED> By: Bacilio Patel MD 11/28/20 1130 0603 [id number] Patel MD /nt
== END ==
LOC: M.PUL 11:00
PROVIDERS: ATTEND Internal Medicine Critical Care Medicine
DX: J98.8 Other specified respiratory disorders (principal); J45.40 Moderate persistent asthma, uncomplicated

== ENCOUNTER → 2021-01-17 | Outpatient (CLI) | payer MEDICARE, OTHER | LOC: M.CT 10:50 | PROVIDERS: ATTEND Internal Medicine Critical Care Medicine | DX: J98.4 Other disorders of lung (principal); I25.10 Atherosclerotic heart disease of native coronary artery without angina pectoris; R91.8 Other nonspecific abnormal finding of lung field; R91.1 Solitary pulmonary nodule ==

== ENCOUNTER 2021-05-05 23:57 | Inpatient (IN) | payer MEDICARE, OTHER ==
[~2021-05-05] VITALS: Ht 170.2 cm; Wt 72.1 kg
--- NOTE | ~2021-05-05 | PROC ---
[address] [address] PROCEDURE REPORT Name: MIKA BAKER Room: [address] IN .R.#: [id number] Admission: 05/06/21 Attend Phys: Delicia Young Discharge: Date of : 31 Report #: [id number] THIS REPORT FOR: cc: Lelia Delgadillo MD, Lin W. MD [facility],Medical Records Staff ~ For GI report, please see the Provation report in Perceptive 7 content. By: 1410Medical Records Staff [facility] /YOSEPH
[~2021-05-05 23:57] MED LIST changes: -LEVO-T50 MCG PO; +LEVO-T75 MCG PO
[2021-05-06] VITALS (7 sets, daily range): BP systolic 139–174; BP diastolic 64–77
[2021-05-06] MEDS ORDERED: MONTELUKAST SODI4 M1 PO (00:15)
[2021-05-06] MEDS ORDERED: TRELEGY ELLIPT1 EACH PO (00:15)
[2021-05-06] MEDS ORDERED: FLEXERIL PO (00:15)
[2021-05-06] MEDS ORDERED: AMITRIPTYLINE H10 M1 PO (00:15)
[2021-05-06] MEDS ORDERED: VITAMIN C100 MG PO (00:16)
[2021-05-06 00:33] LABS: ABSOLUTE EOSINOPHILS 0.1 thou/uL (0.0-0.7); ABSOLUTE LYMPHOCYTES 1.2 thou/uL (0.8-5.3); ABSOLUTE MONOCYTES 0.5 thou/uL (0.0-1.2); ABSOLUTE NEUTROPHILS 3.5 thou/uL (1.6-8.1); BASOPHILS 0.8 %; HEMOGLOBIN 11.3 gm/dL (12.0-15.0); MCH 30.2 pg (26.0-34.0); MCHC 33.1 g/dL (28.0-37.0); MCV 91.1 fL (80.0-100.0); MONOCYTES 8.6 %; MPV 7.4 fl. (7.2-11.1); NUCLEATED RBCS 0 /100WBC; PLATELET COUNT* 194 thou/uL (150-400); POLYS 65.6 %; RBC 3.73 mil/uL (4.20-5.00); RDW-CV 14.4 % (10.5-14.5); WBC 5.3 thou/uL (4.0-11.0)
[2021-05-06 00:54] LABS: POTASSIUM 3.8 mmol/L (3.5-5.1)
[2021-05-06 00:58] LABS: ALBUMIN 3.9 g/dL (3.4-5.0); MAGNESIUM 1.9 mg/dL (1.8-2.4); TOTAL BILIRUBIN 0.3 mg/dL (<0.1-1.0); TOTAL PROTEIN 7.6 g/dL (6.4-8.2)
[2021-05-06 03:20] LABS: URINE BILIRUBIN NEGATIVE (Negative); URINE BLOOD NEGATIVE (Negative); URINE CLARITY CLEAR; URINE COLOR STRAW; URINE GLUCOSE-RANDOM NEGATIVE (Negative); URINE KETONES NEGATIVE (Negative); URINE LEUKOCYTES-REFLEX NEGATIVE (Negative); URINE NITRITE-REFLEX NEGATIVE (Negative); URINE PROTEIN NEGATIVE (Negative); URINE SPECIFIC GRAVITY <= 1.005 (1.005-1.030); URINE UROBILINOGEN 0.2 E.U./dl (0.2-1.0)
--- NOTE | 2021-05-06 11:37 | EKG ---
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 : 1935 Requested By: Leia Jauregui Order Number: [id number] MD: Benito Chaudhary Measurements Intervals [place] Rate: 114 P: 78 NM: 166 QRS: -3 QRSD: 82 T: 88 QT: 292 QTc: 403 Interpretive Statements Sinus tachycardia Abnormal R-wave progression, early transition Nonspecific T abnormalities, lateral leads Compared to ECG 08/14/2020 11:10:36 Sinus rhythm no longer present Poor R-wave progression no longer present Ventricular premature complex(es) no longer present Electronically Signed On 05-06-2021 11:37:17 CDT by Benito Chaudhary [email or web address] <ELECTRONICALLY SIGNED> By: Benito Chaudhary MD, [facility] 05/06/21 1137 2354 2354 Benito Chaudhary MD, [facility] /EPI
--- NOTE | 2021-05-06 11:39 | EKG ---
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: MD : 1935 Requested By: Leia Jauregui Order Number: [id number] MD: Benito Chaudhary Measurements Intervals [place] Rate: 139 P: LA: QRS: -11 QRSD: 81 T: 78 QT: 361 QTc: 549 Interpretive Statements sinus tachycardia ST depression, probably rate related Prolonged QT interval Compared to ECG 05/05/2021 23:54:41 Prolonged QT interval now present Electronically Signed On 05-06-2021 11:39:30 CDT by Benito Chaudhary [email or web address] <ELECTRONICALLY SIGNED> By: Benito Chaudhary MD, FACC 05/06/21 1139 0136 0136 Benito Chaudhary MD, [facility] /EPI
[2021-05-06 11:50] LABS: CALCIUM 9.1 mg/dL (8.5-10.1); CREATININE 1.1 mg/dL (0.6-1.3); POTASSIUM 3.7 mmol/L (3.5-5.1)
[2021-05-06 11:53] LABS: MAGNESIUM 1.8 mg/dL (1.8-2.4); PHOSPHORUS* 3.8 mg/dL (2.5-4.9)
[2021-05-07] VITALS (7 sets, daily range): BP systolic 125–162; BP diastolic 50–68
[2021-05-08 00:58] VITALS: BP 107/52
[2021-05-08 06:18] VITALS: BP 161/65
[2021-05-08 07:45] VITALS: BP 177/75
[2021-05-08 11:54] VITALS: BP 141/69
[2021-05-08 18:35] VITALS: BP 144/71
[2021-05-08 20:00] VITALS: BP 152/55
[2021-05-09] VITALS: BP 88/46
[2021-05-09 04:12] VITALS: BP 134/61
[2021-05-09 04:55] LABS: HEMATOCRIT 34.7 % (37.0-47.0); HEMOGLOBIN 11.5 gm/dL (12.0-15.0); MCH 30.2 pg (26.0-34.0); MCV 91.6 fL (80.0-100.0); MPV 7.7 fl. (7.2-11.1); RBC 3.79 mil/uL (4.20-5.00); RDW-CV 14.8 % (10.5-14.5); WBC 5.2 thou/uL (4.0-11.0)
[2021-05-09 05:12] LABS: CALCIUM 9.1 mg/dL (8.5-10.1); MAGNESIUM 1.9 mg/dL (1.8-2.4); POTASSIUM 4.2 mmol/L (3.5-5.1)
[2021-05-09 07:15] VITALS: BP 124/58
[2021-05-09 12:26] VITALS: BP 124/58
[2021-05-09] MEDS ORDERED: PROTONIX40 M2 PO (13:56)
[2021-05-09 14:10] VITALS: BP 124/58
[2021-05-09] MEDS ORDERED: REGLAN 10 MG TA10 MG PO (14:34)
--- NOTE | 2021-05-12 21:06 | PATH ---
[place] [address] PATHOLOGY RPT PROCEDURE Name: MIKA ACOSTA Room: [address] IN M.R.#: [id number] Admission: 05/06/21 Date of : 31 Discharge: 05/09/21 Report #: [id number] Path Case #: [id number] LCA Accession Number: [id number] . 01 Material submitted: . gastrointestinal site - BIOPSY FOR GASTRITIS . 01 Clinical history: . EGD IN OR ABD PAIN, FLASH EDEMA . 02 Diagnosis: Stomach "gastric biopsy": - Gastric antral and oxyntic mucosa with features of reactive gastropathy. - Negative for intestinal metaplasia, dysplasia, and malignancy. - Negative for Helicobacter pylori. (MLK:dede; 05/12/2021) QMS 05/12/2021 1903 Local . 02 Electronically signed: . Theresa Ireland MD, Pathologist NPI- [id number] . 01 Gross description: . The specimen is received in formalin, labeled "Simi Acostaline, gastritis" and consists of 3 santacruz irregular tissues aggregating 0.6 x 0.6 x 0.3 cm which are submitted in toto in A1.([place]; 05/09/2021) DKA/DKA 05/09/2021 1411 Local . 02 Microscopic: . Immunohistochemical stain results (properly controlled) - Helicobacter pylori (A1) - Negative for organisms (MLK:dede; 05/12/2021) . 02 Pathologist provided ICD-10: R10.9 . 02 CPT . 618961, U17634 Specimen Comment: A courtesy copy of this report has been sent to [phone], [phone] Specimen Comment: [phone], Specimen Comment: Report sent to , DR SOLARES / DR KIRK Performed at: [address], [place] [address] MD Eleazar Arana MD Phone: [phone] [place] [address] PATHOLOGY RPT PROCEDURE Name: ACOSTAMIKA Room: [address] DIS IN M.R.#: [id number] Admission: 05/06/21 Date of : 31 Discharge: 05/09/21 Report #: [id number] Path Case #: [id number] Performed at: [address], [place], [place] [id number] MD Johnathan Butler MD Phone: [phone]
== END 2021-05-09 15:17 | disposition home health service (06) | DRG 392 ==
LOC: M.ERS 23:57 → M.TBA-ER 05-06 03:09 → M.2W 05-06 03:59
PROVIDERS: Emergency Medicine; Internal Medicine; ADMIT Internal Medicine; ATTEND Internal Medicine
PROC: 0DB68ZX Excision of Stomach, Via Natural or Artificial Opening Endoscopic, Diagnostic (ICD-10-PCS; principal; 2021-05-08)
DX: K31.84 Gastroparesis (principal); K29.70 Gastritis, unspecified, without bleeding; Z20.822 Contact with and (suspected) exposure to COVID-19; M19.90 Unspecified osteoarthritis, unspecified site; J45.909 Unspecified asthma, uncomplicated; E03.9 Hypothyroidism, unspecified; K21.9 Gastro-esophageal reflux disease without esophagitis; G89.29 Other chronic pain; R10.9 Unspecified abdominal pain; M51.36 Other intervertebral disc degeneration, lumbar region; R91.8 Other nonspecific abnormal finding of lung field; K58.9 Irritable bowel syndrome, unspecified; K44.9 Diaphragmatic hernia without obstruction or gangrene; Z90.49 Acquired absence of other specified parts of digestive tract; Z90.710 Acquired absence of both cervix and uterus; Z88.6 Allergy status to analgesic agent; Z88.8 Allergy status to other drugs, medicaments and biological substances; Z88.2 Allergy status to sulfonamides; Z88.1 Allergy status to other antibiotic agents; Z87.891 Personal history of nicotine dependence

== ENCOUNTER → 2021-05-28 | Outpatient (CLI) | payer MEDICARE, OTHER ==
[~2021-05-28] MED LIST changes: +AMITRIPTYLINE H10 M1 PO; +MONTELUKAST SODI4 M1 PO; +REGLAN 10 MG TA10 MG PO; +TRELEGY ELLIPT1 EACH PO; +VITAMIN C100 MG PO
== END ==
LOC: M.CT 05-07 10:00 → M.LAB 05-07 10:00 → M.CT 05-07 11:00 → M.LAB 10:30 → M.CT 11:02
PROVIDERS: ATTEND Internal Medicine Critical Care Medicine
DX: R91.8 Other nonspecific abnormal finding of lung field (principal); N28.1 Cyst of kidney, acquired; I70.0 Atherosclerosis of aorta; M47.815 Spondylosis without myelopathy or radiculopathy, thoracolumbar region